=== PATIENT | female | born 1970 | race Caucasian/White ===

== ENCOUNTER 2021-02-22 13:15 | Emergency (ER) | payer OTHER ==
[2021-02-22] MEDS ORDERED: PERCOCET 5-3251 EACH PO (15:41)
== END 2021-02-22 16:01 | disposition home or self-care (01) ==
LOC: ER1 13:15
DX: S42.211A Unspecified displaced fracture of surgical neck of right humerus, initial encounter for closed fracture (principal); S50.311A Abrasion of right elbow, initial encounter; W19.XXXA Unspecified fall, initial encounter; Z88.8 Allergy status to other drugs, medicaments and biological substances
CPT/HCPCS: 73030; 73080; 73110; 99283